=== PATIENT | male | born 1970 | race Caucasian/White ===

== ENCOUNTER → 2024-12-10 | Day surgery (SDC) | payer MEDICAID, OTHER ==
[~2024-12-10] VITALS: Ht 172.7 cm; Wt 122.7 kg
[~2024-12-10] MED LIST: ABAC1TAB15 PO; ONDA-104 PO; PROPOFOL 1% 20 ML VIAL IVP ONE; SEMA1PEN5 SQ; SODIUM CHLORIDE 0.9% 1,000 ML ONE
[2024-12-10] MEDS: SODIUM CHLORIDE 0.9% 1,000 ML IV ONE (08:03)
== END | disposition still patient (30) ==
LOC: SDS 07:15
PROVIDERS: ATTEND Internal Medicine
DX: Z12.11 Encounter for screening for malignant neoplasm of colon (principal); I10 Essential (primary) hypertension; K74.60 Unspecified cirrhosis of liver; B20 Human immunodeficiency virus [HIV] disease; E66.9 Obesity, unspecified; Z98.890 Other specified postprocedural states; Z79.899 Other long term (current) drug therapy; Z80.0 Family history of malignant neoplasm of digestive organs
CPT/HCPCS: 45378; J2704; J7030